=== PATIENT | male | born 1990 | race African-American/Black ===

== ENCOUNTER 2018-02-05 17:00 | Emergency (ER) | payer BC, SELFPAY ==
[2018-02-05 17:51] LABS: Absolute Monocytes 0.8 K/uL (0.1-1.3); Absolute Neutrophil 4.2 K/uL (1.8-8.0); Basophils % 0.6 % (0-1.3); Eosinophils % 4.9 % (0-4.4); Hematocrit 39.3 % (39.6-49.0); Lymphocytes % 27.3 % (15.3-44.8); MCV 89.1 fL (80-100); MPV 9.9 fL (7.6-11.3); Monocytes % 10.9 % (3.3-12.3); RBC Red Blood Cell Count 4.41 M/uL (4.33-5.43)
[2018-02-05] MEDS ORDERED: NA CHLORIDE 0.9% 1,000 ML ONE (18:08)
--- NOTE | 2018-02-05 18:37 | ER ---
Nurse's Notes [facility] Name: Richard Germain Age: 27 yrs Sex: Male : 1990 Arrival Date: 02/05/2018 Time: 17:03 Bed 18 Private MD: Diagnosis: Volume depletion;Essential (primary) hypertension Presentation: 02/05 17:05 Presenting complaint: Patient states: Bilateral foot and ankle swelling x 1 week. hb Transition of care: patient was not received from another setting of care. Onset of symptoms is unknown. Care prior to arrival: None. 17:05 Method Of Arrival: Ambulatory hb 17:05 Acuity: RICARDO 3 hb Historical: - Allergies: 17:08 No Known Allergies; hb - Home Meds: 17:08 None [Active]; hb - PMHx: 17:08 Hypertension; Kidney Failure; hb - PSHx: 17:08 None; hb - Immunization history:: Adult Immunizations up to date. - Social history:: Smoking status: Patient uses tobacco products, smokes one pack cigarettes per day. Screenin:15 Abuse screen: Denies threats or abuse. Denies injuries from another. Nutritional aj1 screening: No deficits noted. Tuberculosis screening: No symptoms or risk factors identified. 19:22 Fall Risk None identified. aj1 Assessment: 17:15 General: Appears in no apparent distress. uncomfortable, Behavior is calm, cooperative, aj1 appropriate for age. Pain: Denies pain. Neuro: Level of Consciousness is awake, alert, obeys commands, Oriented to person, place, time, situation, Speech is normal. Cardiovascular: Heart tones S1 S2 present Patient's skin is warm and dry. Edema is 1+ to left midcalf, left ankle, right midcalf and right ankle Rhythm is regular. Respiratory: Airway is patent Respiratory effort is even, unlabored, Respiratory pattern is regular, symmetrical, Breath sounds are clear bilaterally. GI: No signs and/or symptoms were reported involving the gastrointestinal system. : No signs and/or symptoms were reported regarding the genitourinary system. EENT: No signs and/or symptoms were reported regarding the EENT system. Derm: No signs and/or symptoms reported regarding the dermatologic system. Skin is pink, warm \T\ dry. normal. Musculoskeletal: No signs and/or symptoms reported regarding the musculoskeletal system. Circulation, motion, and sensation intact. 18:18 Reassessment: Patient appears in no apparent distress at this time. No changes from aj1 previously documented assessment. Patient and/or family updated on plan of care and expected duration. Pain level reassessed. Patient is alert, oriented x 3, equal unlabored respirations, skin warm/dry/pink. 19:22 Reassessment: Patient appears in no apparent distress at this time. No changes from aj1 previously documented assessment. Patient and/or family updated on plan of care and expected duration. Pain level reassessed. Patient is alert, oriented x 3, equal unlabored respirations, skin warm/dry/pink. Vital Signs: 17:06 BP 130 / 71; Pulse 85; Resp 16; Temp 98; Pulse Ox 97% on R/A; Weight 117.93 kg; Height hb 5 ft. 11 in. (180.34 cm); Pain 4/10; 18:18 BP 121 / 81; Pulse 50; Resp 18; Pulse Ox 96% on R/A; aj1 19:22 BP 125 / 77; Pulse 62; Resp 18; Pulse Ox 99% ; aj1 17:06 Body Mass Index 36.26 (117.93 kg, 180.34 cm) hb ED Course: 17:03 Patient arrived in ED. as 17:06 Triage completed. hb 17:06 Arm band placed on right wrist. hb 17:15 Patient has correct armband on for positive identification. Bed in low position. Call aj1 light in reach. Side rails up X 1. 17:15 No provider procedures requiring assistance completed. aj1 17:16 [facility]and[facility]-C [facility]. snw 17:16 Hill Acuna MD is Attending Physician. snw 17:17 Fabiana Henriquez, IVY is Primary Nurse. aj1 17:30 Inserted saline lock: 20 gauge in right antecubital area, using aseptic technique. aj1 17:47 EKG done, by fishing tool technician oil well. reviewed by Isi JEFFREY. at1 19:23 IV discontinued, intact, bleeding controlled, No redness/swelling at site. Pressure aj1 dressing applied. Administered Medications: 18:02 Drug: NS 0.9% 1000 ml Route: IV; Rate: 75 ml/hr; Site: right antecubital; aj1 19:15 Follow up: IV Status: Completed infusion; IV Intake: 100ml aj1 Intake: 19:15 IV: 100ml; Total: 100ml. aj1 Outcome: 18:36 Discharge ordered by MD. sims 19:24 Discharged to home ambulatory. aj1 19:24 Condition: good 19:24 Discharge instructions given to patient, Instructed on discharge instructions, follow up and referral plans. Demonstrated understanding of instructions, follow-up care. 19:38 Patient left the ED. aj1 Signatures: Fabiana Henriquez RN RN aj1 Isi Hernandes, WEDDING DECORATOR-C WEDDING DECORATOR-Csnw Jhoana Israel Amanda, yard pilot EKG Tat1 Melly Wang RN RN hb Corrections: (The following items were deleted from the chart) 17:12 17:05 Presenting complaint: Patient states: Foot and ankle swelling x 1 week. hb hb
--- NOTE | 2018-02-05 18:38 | EDPHYS ---
Physician Documentation [facility] Name: Richard Germain Age: 27 yrs Sex: Male : 1990 Arrival Date: 02/05/2018 Time: 17:03 Bed 18 Private MD: Hill Sam HPI: 02/05 18:44 This 27 yrs old Black Male presents to ER via Ambulatory with complaints of Ankle snw Swelling, Feet Swelling. 18:44 The patient presents with swelling. The complaints affect the left ankle, right ankle. snw Onset: The symptoms/episode began/occurred gradually, 1 week(s) ago, and became persistent. Context: The problem was sustained at an unknown location, resulted from an unknown cause. Associated signs and symptoms: Pertinent positives: swelling. Severity of symptoms: At their worst the symptoms were moderate. The patient has experienced a previous episode. The patient has not recently seen a physician. pt states that last time he was here they told him his kidneys were shutting down and he had high blood pressure. Pt has not followed up since discharge.. Historical: - Allergies: 17:08 No Known Allergies; hb - Home Meds: 17:08 None [Active]; hb - PMHx: 17:08 Hypertension; Kidney Failure; hb - PSHx: 17:08 None; hb - Immunization history:: Adult Immunizations up to date. - Social history:: Smoking status: Patient uses tobacco products, smokes one pack cigarettes per day. ROS: 18:35 Constitutional: Negative for fever, chills, and weight loss, Eyes: Negative for injury, snw pain, redness, and discharge, ENT: Negative for injury, pain, and discharge, Neck: Negative for injury, pain, and swelling, Cardiovascular: Negative for chest pain, palpitations, and edema, Respiratory: Negative for shortness of breath, cough, wheezing, and pleuritic chest pain, Abdomen/GI: Negative for abdominal pain, nausea, vomiting, diarrhea, and constipation, Back: Negative for injury and pain, : Negative for injury, bleeding, discharge, and swelling, Skin: Negative for injury, rash, and discoloration, Neuro: Negative for headache, weakness, numbness, tingling, and seizure. 18:35 MS/extremity: Positive for swelling, of the bilateral lower extremities. Exam: 18:27 Constitutional: This is a well developed, well nourished patient who is awake, alert, snw and in no acute distress. Head/Face: Normocephalic, atraumatic. Eyes: Pupils equal round and reactive to light, extra-ocular motions intact. Lids and lashes normal. Conjunctiva and sclera are non-icteric and not injected. Cornea within normal limits. Periorbital areas with no swelling, redness, or edema. ENT: Nares patent. No nasal discharge, no septal abnormalities noted. Tympanic membranes are normal and external auditory canals are clear. Oropharynx with no redness, swelling, or masses, exudates, or evidence of obstruction, uvula midline. Mucous membranes moist. Neck: Trachea midline, no thyromegaly or masses palpated, and no cervical lymphadenopathy. Supple, full range of motion without nuchal rigidity, or vertebral point tenderness. No Meningismus. Chest/axilla: Normal chest wall appearance and motion. Nontender with no deformity. No lesions are appreciated. Cardiovascular: Regular rate and rhythm with a normal S1 and S2. No gallops, murmurs, or rubs. Normal PMI, no JVD. No pulse deficits. Respiratory: Lungs have equal breath sounds bilaterally, clear to auscultation and percussion. No rales, rhonchi or wheezes noted. No increased work of breathing, no retractions or nasal flaring. Abdomen/GI: Soft, non-tender, with normal bowel sounds. No distension or tympany. No guarding or rebound. No evidence of tenderness throughout. Back: No spinal tenderness. No costovertebral tenderness. Full range of motion. Skin: Warm, dry with normal turgor. Normal color with no rashes, no lesions, and no evidence of cellulitis. Neuro: Awake and alert, GCS 15, oriented to person, place, time, and situation. Cranial nerves II-XII grossly intact. Motor strength 5/5 in all extremities. Sensory grossly intact. Cerebellar exam normal. Normal gait. 18:27 Musculoskeletal/extremity: Extremities: grossly normal except: mild lower extremity edema, Circulation is intact in all extremities. Vital Signs: 17:06 BP 130 / 71; Pulse 85; Resp 16; Temp 98; Pulse Ox 97% on R/A; Weight 117.93 kg; Height hb 5 ft. 11 in. (180.34 cm); Pain 4/10; 18:18 BP 121 / 81; Pulse 50; Resp 18; Pulse Ox 96% on R/A; aj1 19:22 BP 125 / 77; Pulse 62; Resp 18; Pulse Ox 99% ; aj1 17:06 Body Mass Index 36.26 (117.93 kg, 180.34 cm) hb MDM: 17:16 Patient medically screened. snw 18:42 Data reviewed: vital signs, nurses notes. Data interpreted: Pulse oximetry: on room air snw is 96 %. Interpretation: acceptable. Counseling: I had a detailed discussion with the patient and/or guardian regarding: the historical points, exam findings, and any diagnostic results supporting the discharge/admit diagnosis, the presence of at least one elevated blood pressure reading (>120/80) during this emergency department visit, lab results, the need for outpatient follow up, to return to the emergency department if symptoms worsen or persist or if there are any questions or concerns that arise at home. Special discussion: I have referred the patient to see his PCP for further evaluation of high blood pressure. Based on the history and exam findings, there is no indication for further emergent testing or inpatient evaluation. I discussed with the patient/guardian the need to see the primary care provider for further evaluation of the symptoms. 02/05 17:21 Order name: CBC with Diff; Complete Time: 17:59 snw 02/05 17:21 Order name: Chem 7; Complete Time: 18:06 snw 02/05 17:21 Order name: CPK; Complete Time: 18:06 snw 02/05 17:21 Order name: EKG; Complete Time: 17:22 snw 02/05 17:21 Order name: EKG - Nurse/Tech; Complete Time: 18:18 snw Administered Medications: 18:02 Drug: NS 0.9% 1000 ml Route: IV; Rate: 75 ml/hr; Site: right antecubital; aj1 19:15 Follow up: IV Status: Completed infusion; IV Intake: 100ml aj1 Disposition: 02/06 07:10 Co-signature as Attending Physician, Hill Acuna MD I agree with the assessment and agustin plan of care. Disposition: 02/05/18 18:36 Discharged to Home. Impression: Volume depletion, Essential (primary) hypertension. - Condition is Stable. - Discharge Instructions: Dehydration, Adult, Hypertension, How to Take Your Blood Pressure, [id number], DASH Eating Plan, Rehydration, Adult, Managing Your High Blood Pressure. - Work release form, Medication Reconciliation Form, Thank You Letter, Antibiotic Education, Prescription Opioid Use form. - Follow up: Private Physician; When: 2 - 3 days; Reason: Recheck today's complaints, Continuance of care, Re-evaluation by your physician. Follow up: Emergency Department; When: As needed; Reason: Worsening of condition. Signatures: Dispatcher [employer] Fabiana Keith, RN RN aj1 Hill Acuna MD MD cha Therrien, Shelly, ELEVATOR MECHANIC APPRENTICE-C ELEVATOR MECHANIC APPRENTICE-Csnw Melly Wang RN RN Corrections: (The following items were deleted from the chart) 02/05 17:37 17:22 Chest Pa And Lat (2 Views)+[email or web address] ordered. [facility]
[2018-02-05 19:43] VITALS: TEMP 98
[2018-02-05 19:45] VITALS: BP 125/77; O2SAT 99
--- NOTE | 2018-02-06 16:30 | EKG ---
Test Date: 2018-02-05 Test Time: 17:38:48 Class 1 Owner Operator: FAROOQ MEASUREMENT RESULTS: Intervals: Rate: 63 MN: 166 QRSD: 82 QT: 376 QTc: 384 [place]: P: 50 MN: 166 QRS: 21 T: 10 INTERPRETIVE STATEMENTS: Normal sinus rhythm with sinus arrhythmia Normal ECG Compared to ECG 05/24/2015 14:28:26 Sinus tachycardia no longer present Atrial abnormality no longer present Electronically Signed On 02-06-18 16:27:54 CDT by Jun Sandoval
== END 2018-02-05 19:38 | disposition home or self-care (01) ==
LOC: ER 17:00
DX: E86.9 Volume depletion, unspecified; N19 Unspecified kidney failure; F17.210 Nicotine dependence, cigarettes, uncomplicated; I10 Essential (primary) hypertension
CPT/HCPCS: 36415; 80048; 82550; 85025; 93005; 96360; 99283; J7030